=== PATIENT | female | born 2000 | race Caucasian/White ===

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

== ENCOUNTER 2021-01-18 15:43 | Emergency (ER) | payer OTHER ==
[~2021-01-18] VITALS: Ht 154.9 cm; Wt 47.6 kg
[2021-01-18 15:45] VITALS: BP 146/101
[2021-01-18 17:29] LABS: URINE BILIRUBIN 1+ (Negative); URINE BLOOD 1+ (Negative); URINE CLARITY CLEAR; URINE COLOR YELLOW; URINE GLUCOSE-RANDOM* NEGATIVE (Negative); URINE KETONES TRACE (Negative); URINE LEUKOCYTES-REFLEX NEGATIVE (Negative); URINE NITRITE-REFLEX NEGATIVE (Negative); URINE PROTEIN (DIPSTICK) 1+ (Negative); URINE SPECIFIC GRAVITY >= 1.030 (1.005-1.035)
[2021-01-18 17:32] LABS: ICTOTEST (BILI CONFIRMATORY) Negative (Negative)
[2021-01-18 17:34] LABS: BACTERIA-REFLEX None Seen /HPF (None Seen); CRYSTALS None Seen /LPF (None Seen); SQUAMOUS >10 Many /LPF (0-3); URINE RBC None Seen /HPF (NONE SEEN); URINE WBC-REFLEX None Seen /HPF (0-5)
[2021-01-18 17:35] LABS: MUCUS >6 Heavy strn/LPF (None Seen)
[2021-01-18] MEDS ORDERED: TESSALON PERLE100 MG PO (18:22)
== END 2021-01-18 18:52 | disposition home or self-care (01) ==
LOC: ER 15:43
PROVIDERS: Nurse Practitioner
DX: H66.90 Otitis media, unspecified, unspecified ear (principal); R05 Cough